=== PATIENT | female | born 1970 | race African-American/Black ===

== ENCOUNTER 2016-03-14 19:41 | Emergency (ER) | payer MEDICARE, MEDICAID ==
[2015-07-04 10:05] VITALS: BMI 49.4
[~2016-03-14 19:41] MED LIST: ATIVAN1 MG PO; COLACE100 MG PO; COMPAZINE5 MG PO; DEPAKOTE ER500 MG PO; DILAUDID4 MG PO; ELIQUIS5 MG PO; FERROUS SULFAT325 MG PO; KEPPRA1000 MG PO; LANTUS INSULIN10 ML SC; NEPHROCAPS SOFTG1 MG PO; NIFEDIPINE ER30 MG PO; NITROSTAT0.4 MG SL; PROTONIX40 MG PO; RENAGEL800 MG PO; ROBINUL 1 MG TAB1 MG PO; TOPROL XL25 MG PO; VITAMIN B COMPL1 TAB PO; XANAX0.25 MG PO
== END 2016-03-15 00:10 | disposition home or self-care (01) ==
LOC: D.ER 19:41
DX: T81.4XXA Infection following a procedure, initial encounter (principal); L73.2 Hidradenitis suppurativa; Z95.0 Presence of cardiac pacemaker; G47.30 Sleep apnea, unspecified

== ENCOUNTER 2016-04-15 22:12 | Emergency (ER) | payer MEDICARE, MEDICAID ==
[2015-07-04 10:05] VITALS: BMI 49.4
[2016-04-15 23:11] LABS: BASOPHILS 0.3 % (0.0-2.0); EOSINOPHILS 2.6 % (0-7); HEMATOCRIT 30.8 % (36.0-48.0); HEMOGLOBIN 9.3 g/dL (12-16); IMMATURE GRANULOCYTES 0.4 % (0-5); LYMPHOCYTES 17.4 % (15-50); MCH 27.9 pg (26.0-34.0); MCHC 30.2 g/dL (31.0-37.0); MCV 92.5 fL (80.0-100.0); MEAN PLATELET VOLUME 11.9 fL (7.4-10.4); MONOCYTES 9.1 % (2-11); NEUTROPHILS 70.2 % (40-80); PLATELET COUNT 239 10x3/uL (130-400); RBC 3.33 10x6/uL (4.00-5.40); RDW 16.8 % (11.5-14.5); WBC 10.6 10x3/uL (4.8-10.8)
[2016-04-15 23:39] LABS: APPEARANCE CLOUDY (CLEAR); BILIRUBIN NEGATIVE (NEGATIVE); COLOR YELLOW (YELLOW); GLUCOSE NEGATIVE (NEGATIVE); KETONE NEGATIVE (NEGATIVE); LEUKOCYTE ESTERASE 2+ (NEGATIVE); NITRITE NEGATIVE (NEGATIVE); PROTEIN 2+ mg/dL (NEGATIVE); SPECIFIC GRAVITY 1.015 (1.005-1.020); UROBILINOGEN NORMAL (NORMAL)
[2016-04-15 23:45] LABS: BACTERIA MANY /hpf (NONE SEEN); WHITE CELLS - URINE >50 /hpf (0-5)
[2016-04-15 23:46] LABS: HYALINE CAST OCC /lpf (NONE SEEN); WAXY CAST RARE /lpf (NONE SEEN)
== END 2016-04-16 00:28 | disposition home or self-care (01) ==
LOC: D.ER 22:12
PROVIDERS: Emergency Medicine
DX: J06.9 Acute upper respiratory infection, unspecified (principal); F41.9 Anxiety disorder, unspecified; I50.9 Heart failure, unspecified; G89.29 Other chronic pain; Z86.73 Personal history of transient ischemic attack (TIA), and cerebral infarction without residual deficits; Z95.0 Presence of cardiac pacemaker; G47.30 Sleep apnea, unspecified

== ENCOUNTER 2016-04-22 14:06 | Emergency (ER) | payer MEDICARE, MEDICAID ==
[2015-07-04 10:05] VITALS: BMI 49.4
== END 2016-04-22 15:00 | disposition home or self-care (01) ==
LOC: D.ER 14:06
DX: L89.213 Pressure ulcer of right hip, stage 3 (principal); F41.9 Anxiety disorder, unspecified; I50.9 Heart failure, unspecified; Z86.73 Personal history of transient ischemic attack (TIA), and cerebral infarction without residual deficits; Z95.0 Presence of cardiac pacemaker; G47.30 Sleep apnea, unspecified

== ENCOUNTER 2016-05-23 21:37 | Emergency (ER) | payer MEDICARE, MEDICAID ==
[2015-07-04 10:05] VITALS: BMI 49.4
== END 2016-05-23 23:52 | disposition left against medical advice (07) ==
LOC: D.ER 21:37
DX: M79.672 Pain in left foot (principal)

== ENCOUNTER 2016-05-29 06:12 | Emergency (ER) | payer MEDICARE, MEDICAID ==
[2015-07-04 10:05] VITALS: BMI 49.4
== END 2016-05-29 06:52 | disposition left against medical advice (07) ==
LOC: D.ER 06:12
DX: K92.0 Hematemesis (principal); I50.9 Heart failure, unspecified; Z86.73 Personal history of transient ischemic attack (TIA), and cerebral infarction without residual deficits; Z95.0 Presence of cardiac pacemaker; G47.30 Sleep apnea, unspecified

== ENCOUNTER 2016-06-15 00:01 | Emergency (ER) | payer MEDICARE, MEDICAID ==
[2015-07-04 10:05] VITALS: BMI 49.4
[2016-06-15 01:28] LABS: BASOPHILS 0.4 % (0.0-2.0); EOSINOPHILS 4.1 % (0-7); HEMATOCRIT 35.4 % (36.0-48.0); IMMATURE GRANULOCYTES 0.4 % (0-5); LYMPHOCYTES 25.1 % (15-50); MCH 27.9 pg (26.0-34.0); MCHC 31.1 g/dL (31.0-37.0); MCV 89.8 fL (80.0-100.0); MEAN PLATELET VOLUME 11.6 fL (7.4-10.4); MONOCYTES 8.8 % (2-11); NEUTROPHILS 61.2 % (40-80); PLATELET COUNT 205 10x3/uL (130-400); RBC 3.94 10x6/uL (4.00-5.40); RDW 15.4 % (11.5-14.5); WBC 7.8 10x3/uL (4.8-10.8)
[2016-06-15 01:34] LABS: ALBUMIN 3.3 g/dL (3.4-5.0); ALKALINE PHOSPHATASE 92 U/L (46-116); ALT (SGPT) 14 U/L (10-68); BILIRUBIN - TOTAL 0.38 mg/dL (0.2-1.3); CALC OSMOLALITY 297 mosm/kg (275-300); CALCIUM 8.8 mg/dL (8.5-10.1); CARBON DIOXIDE 20.7 mmol/L (21.0-32.0); CHLORIDE - SERUM 106 mmol/L (98-107); CREATININE - SERUM 9.8 mg/dL (0.6-1.3); POTASSIUM - SERUM 4.6 mmol/L (3.5-5.1); PROTEIN - SERUM 8.4 g/dL (6.4-8.2); SODIUM 143 mmol/L (136-145); UREA NITROGEN 47 mg/dL (7-18); eGFR NON AFRICAN AMERICAN 5 mL/min (90-120)
[2016-06-15 01:39] LABS: GLUCOSE 120 mg/dL (74-106)
[2016-06-15 01:41] LABS: CKMB 0.7 U/L (0.0-3.6); CREATINE KINASE 48 UL (21-215); PRO BNP 16232 pg/mL (0-125); TROPONIN-I 0.019 ng/mL (0.000-0.060)
== END 2016-06-15 03:15 | disposition home or self-care (01) ==
LOC: D.ER 00:01
PROVIDERS: Family Medicine
DX: N18.9 Chronic kidney disease, unspecified (principal); G43.919 Migraine, unspecified, intractable, without status migrainosus; I50.9 Heart failure, unspecified; Z86.73 Personal history of transient ischemic attack (TIA), and cerebral infarction without residual deficits; Z95.0 Presence of cardiac pacemaker; G47.30 Sleep apnea, unspecified

== ENCOUNTER 2016-06-16 18:58 | Emergency (ER) | payer MEDICARE ==
[2015-07-04 10:05] VITALS: BMI 49.4
[2016-06-16 19:36] LABS: BASOPHILS 0.4 % (0.0-2.0); HEMATOCRIT 36.9 % (36.0-48.0); HEMOGLOBIN 11.6 g/dL (12-16); IMMATURE GRANULOCYTES 0.3 % (0-5); LYMPHOCYTES 21.8 % (15-50); MCH 28.2 pg (26.0-34.0); MCHC 31.4 g/dL (31.0-37.0); MCV 89.8 fL (80.0-100.0); MONOCYTES 7.4 % (2-11); NEUTROPHILS 67.1 % (40-80); PLATELET COUNT 217 10x3/uL (130-400); RBC 4.11 10x6/uL (4.00-5.40); WBC 6.7 10x3/uL (4.8-10.8)
[2016-06-16 19:49] LABS: ALBUMIN 3.3 g/dL (3.4-5.0); ALKALINE PHOSPHATASE 101 U/L (46-116); ALT (SGPT) 14 U/L (10-68); BILIRUBIN - TOTAL 0.34 mg/dL (0.2-1.3); CALCIUM 8.9 mg/dL (8.5-10.1); CHLORIDE - SERUM 102 mmol/L (98-107); CREATININE - SERUM 7.4 mg/dL (0.6-1.3); GLUCOSE 83 mg/dL (74-106); POTASSIUM - SERUM 4.1 mmol/L (3.5-5.1); PROTEIN - SERUM 8.4 g/dL (6.4-8.2); SODIUM 141 mmol/L (136-145); eGFR NON AFRICAN AMERICAN 6 mL/min (90-120)
[2016-06-16 19:50] LABS: CALC OSMOLALITY 285 mosm/kg (275-300); CARBON DIOXIDE 26.7 mmol/L (21.0-32.0); UREA NITROGEN 28 mg/dL (7-18)
[2016-06-16 20:01] LABS: CHOL - HDL RATIO 2.5 ratio (2.3-4.1); CHOLESTEROL, TOTAL 145 mg/dL (0-200); CKMB 0.8 U/L (0.0-3.6); CREATINE KINASE 50 UL (21-215); HDL CHOLESTEROL 58 mg/dL (32-96); LDL CHOLESTEROL 59 mg/dL (0-100); TRIGLYCERIDE 140 mg/dL (30-200); TROPONIN-I 0.024 ng/mL (0.000-0.060)
== END 2016-06-16 23:23 | disposition home or self-care (01) ==
LOC: D.ER 18:58
PROVIDERS: Emergency Medicine
DX: R07.9 Chest pain, unspecified (principal); I50.9 Heart failure, unspecified; N18.9 Chronic kidney disease, unspecified; Z86.73 Personal history of transient ischemic attack (TIA), and cerebral infarction without residual deficits; Z95.0 Presence of cardiac pacemaker; G47.30 Sleep apnea, unspecified

== ENCOUNTER 2016-07-01 12:32 | Emergency (ER) | payer MEDICARE ==
[2015-07-04 10:05] VITALS: BMI 49.4
[2016-07-01 16:03] LABS: BASOPHILS 0.3 % (0-2); EOSINOPHILS 2.1 % (0-7); HEMATOCRIT 33.6 % (36.0-48.0); HEMOGLOBIN 10.3 g/dL (12-16); IMMATURE GRANULOCYTES 0.3 % (0-5); LYMPHOCYTES 15.1 % (15-50); MCH 27.8 pg (26.0-34.0); MCHC 30.7 g/dL (31.0-37.0); MCV 90.6 fL (80.0-100.0); MEAN PLATELET VOLUME 12.1 fL (7.4-10.4); MONOCYTES 9.3 % (2-11); NEUTROPHILS 72.9 % (40-80); PLATELET COUNT 210 10x3/uL (130-400); RBC 3.71 10x6/uL (4.00-5.40); RDW 15.4 % (11.5-14.5); WBC 9.3 10x3/uL (4.8-10.8)
[2016-07-01 16:15] LABS: APPEARANCE HAZY (CLEAR); BILIRUBIN NEGATIVE (NEGATIVE); COLOR YELLOW (YELLOW); GLUCOSE NEGATIVE (NEGATIVE); KETONE NEGATIVE (NEGATIVE); LEUKOCYTE ESTERASE 1+ (NEGATIVE); NITRITE NEGATIVE (NEGATIVE); PROTEIN 3+ mg/dL (NEGATIVE); SPECIFIC GRAVITY 1.005 (1.005-1.020); UROBILINOGEN NORMAL (NORMAL)
[2016-07-01 16:16] LABS: BACTERIA MODERATE /hpf (NONE SEEN); EPITHELIAL CELLS 0-5 /hpf (0-5); RED CELLS - URINE 0-5 /hpf (0-5)
[2016-07-01 16:27] LABS: ALBUMIN 3.3 g/dL (3.4-5.0); BILIRUBIN - TOTAL 0.55 mg/dL (0.2-1.3); CALCIUM 9.9 mg/dL (8.5-10.1); CARBON DIOXIDE 24.9 mmol/L (21.0-32.0); CREATININE - SERUM 9.7 mg/dL (0.6-1.3); POTASSIUM - SERUM 5.9 mmol/L (3.5-5.1); PROTEIN - SERUM 8.4 g/dL (6.4-8.2)
== END 2016-07-01 18:45 | disposition home or self-care (01) ==
LOC: D.ER 12:32
PROVIDERS: Physician Assistant Medical
DX: J18.9 Pneumonia, unspecified organism (principal); E87.70 Fluid overload, unspecified; I50.9 Heart failure, unspecified; Z86.73 Personal history of transient ischemic attack (TIA), and cerebral infarction without residual deficits; N18.9 Chronic kidney disease, unspecified; Z95.0 Presence of cardiac pacemaker; G47.30 Sleep apnea, unspecified

== ENCOUNTER 2016-07-02 18:41 | Emergency (ER) | payer MEDICARE ==
[2015-07-04 10:05] VITALS: BMI 49.4
[2016-07-02 20:26] LABS: BASOPHILS 0.1 % (0-2); EOSINOPHILS 0.5 % (0-7); HEMOGLOBIN 9.9 g/dL (12-16); IMMATURE GRANULOCYTES 0.2 % (0-5); LYMPHOCYTES 3.5 % (15-50); MCH 27.9 pg (26.0-34.0); MCHC 30.9 g/dL (31.0-37.0); MCV 90.1 fL (80.0-100.0); MEAN PLATELET VOLUME 11.3 fL (7.4-10.4); MONOCYTES 7.9 % (2-11); NEUTROPHILS 87.8 % (40-80); PLATELET COUNT 173 10x3/uL (130-400); RBC 3.55 10x6/uL (4.00-5.40); RDW 15.4 % (11.5-14.5); WBC 9.5 10x3/uL (4.8-10.8)
[2016-07-02 20:41] LABS: HEMOGLOBIN A1C 5.5 % (4.8-6.0)
[2016-07-02 20:44] LABS: BILIRUBIN - TOTAL 0.41 mg/dL (0.2-1.3); CALCIUM 9.3 mg/dL (8.5-10.1); CARBON DIOXIDE 24.6 mmol/L (21.0-32.0); CREATININE - SERUM 8.2 mg/dL (0.6-1.3); PROTEIN - SERUM 8.4 g/dL (6.4-8.2)
[2016-07-02 20:50] LABS: ANION GAP 16.4 mmol/L (8-16)
[2016-07-02 20:54] LABS: TROPONIN-I 0.033 ng/mL (0.000-0.060)
== END 2016-07-02 22:25 | disposition home or self-care (01) ==
LOC: D.ER 18:41
PROVIDERS: Family Medicine
DX: J18.9 Pneumonia, unspecified organism (principal); N18.9 Chronic kidney disease, unspecified; I50.9 Heart failure, unspecified; Z86.73 Personal history of transient ischemic attack (TIA), and cerebral infarction without residual deficits; Z95.0 Presence of cardiac pacemaker; E11.9 Type 2 diabetes mellitus without complications; Z79.4 Long term (current) use of insulin

== ENCOUNTER 2016-07-06 01:04 | Emergency (ER) | payer MEDICARE ==
[2015-07-04 10:05] VITALS: BMI 49.4
== END 2016-07-06 02:55 | disposition left against medical advice (07) ==
LOC: D.ER 01:04
DX: R11.10 Vomiting, unspecified (principal); R10.9 Unspecified abdominal pain; I50.9 Heart failure, unspecified; N18.9 Chronic kidney disease, unspecified; Z99.2 Dependence on renal dialysis; Z86.73 Personal history of transient ischemic attack (TIA), and cerebral infarction without residual deficits; Z95.0 Presence of cardiac pacemaker; G47.30 Sleep apnea, unspecified

== ENCOUNTER 2016-08-02 05:27 | Emergency (ER) | payer MEDICARE ==
[2015-07-04 10:05] VITALS: BMI 49.4
== END 2016-08-02 06:45 | disposition home or self-care (01) ==
LOC: D.ER 05:27
DX: F41.0 Panic disorder [episodic paroxysmal anxiety] (principal); N18.6 End stage renal disease; I50.9 Heart failure, unspecified; Z86.73 Personal history of transient ischemic attack (TIA), and cerebral infarction without residual deficits; Z95.0 Presence of cardiac pacemaker; G47.30 Sleep apnea, unspecified

== ENCOUNTER 2016-08-22 12:55 | Emergency (ER) | payer MEDICARE ==
[2015-07-04 10:05] VITALS: BMI 49.4
[2016-08-22 15:03] LABS: BASOPHILS 0.4 % (0-2); EOSINOPHILS 4.6 % (0-7); HEMATOCRIT 28.4 % (36.0-48.0); HEMOGLOBIN 8.9 g/dL (12-16); IMMATURE GRANULOCYTES 0.2 % (0-5); LYMPHOCYTES 17.8 % (15-50); MCH 28.6 pg (26.0-34.0); MCHC 31.3 g/dL (31.0-37.0); MCV 91.3 fL (80.0-100.0); MEAN PLATELET VOLUME 12.1 fL (7.4-10.4); MONOCYTES 5.3 % (2-11); NEUTROPHILS 71.7 % (40-80); PLATELET COUNT 221 10x3/uL (130-400); RBC 3.11 10x6/uL (4.00-5.40); RDW 15.3 % (11.5-14.5); WBC 9.2 10x3/uL (4.8-10.8)
[2016-08-22 15:11] LABS: ALBUMIN 3.3 g/dL (3.4-5.0); ANION GAP 18.7 mmol/L (8-16); BILIRUBIN - TOTAL 0.38 mg/dL (0.2-1.3); CALCIUM 7.9 mg/dL (8.5-10.1); CARBON DIOXIDE 22.4 mmol/L (21.0-32.0); CREATININE - SERUM 12.4 mg/dL (0.6-1.3); POTASSIUM - SERUM 5.1 mmol/L (3.5-5.1)
== END 2016-08-22 16:21 | disposition home or self-care (01) ==
LOC: D.ER 12:55
PROVIDERS: Physician Assistant
DX: I12.9 Hypertensive chronic kidney disease with stage 1 through stage 4 chronic kidney disease, or unspecified chronic kidney disease (principal); E11.9 Type 2 diabetes mellitus without complications; Z79.4 Long term (current) use of insulin; G40.909 Epilepsy, unspecified, not intractable, without status epilepticus; D64.9 Anemia, unspecified

== ENCOUNTER 2016-08-23 09:40 | Emergency (ER) | payer MEDICARE ==
[2015-07-04 10:05] VITALS: BMI 49.4
[2016-08-23 13:35] LABS: BASOPHILS 0.4 % (0-2); EOSINOPHILS 5.4 % (0-7); HEMOGLOBIN 9.2 g/dL (12-16); IMMATURE GRANULOCYTES 0.3 % (0-5); LYMPHOCYTES 19.3 % (15-50); MCH 28.3 pg (26.0-34.0); MCHC 31.7 g/dL (31.0-37.0); MEAN PLATELET VOLUME 11.8 fL (7.4-10.4); MONOCYTES 7.4 % (2-11); NEUTROPHILS 67.2 % (40-80); PLATELET COUNT 191 10x3/uL (130-400); RBC 3.25 10x6/uL (4.00-5.40); RDW 15.1 % (11.5-14.5)
--- NOTE | 2016-08-23 13:54 | NUR ---
HEMODIALYSIS TREATMENT STOPPED AT 2HR, PATIENT HAD COMPLAINED OF CRAMPING, I EXPLAINED THAT BECAUSE SHE MISSED 2 TREATMENTS, WE HAVE TO BE AGGRESSIVE ON HER UF TO MAKE UP FOR THAT. PATIENT THEN SAT UP OUT OF CHAIR AND COMPLAINED OF DIZZINESS, PATIENT WAS UN COOPERATIVE WHEN ASKED TO PUT HER LEGS BACK UP INTO CHAIR. PATIENT THEN STARTED HAVING "SEIZURE LIKE" ACTIVITY WITH EYES ROLLED BACK AND SHAKING OF BODY. THIS LASTED APPROXIMATELY 10 MINUTES, RAPID RESPONSE CALLED, PATIENT TAKEN OFF OF TREATMENT. DR. LIN NOTIFIED, INSTRUCTED PATIENT RETURN TO ER AND HAVE ER PHYSICIAN LOOK AT PATIENT, THAT DIALYSIS WAS COMPLETE. ER NURSE IN FOR REPORT AND TRANSPORTED PATIENT BACK TO ER VIA . VITALS WNL AT TREATMENT END, AFTER DRAWING LAB FROM HEMOSPLIT IT WAS FLUSHED AND HEPARINIZED. NET FLUID REMOVAL OF 3500 ML.
[2016-08-23 13:56] LABS: MCV 89.2 fL (80.0-100.0)
[2016-08-23 14:00] LABS: ALBUMIN 3.5 g/dL (3.4-5.0); ANION GAP 18.1 mmol/L (8-16); BILIRUBIN - TOTAL 0.4 mg/dL (0.2-1.3); CALCIUM 8.4 mg/dL (8.5-10.1); PROTEIN - SERUM 9.1 g/dL (6.4-8.2)
[2016-08-23 14:05] LABS: CREATININE - SERUM 9.2 mg/dL (0.6-1.3); POTASSIUM - SERUM 4.1 mmol/L (3.5-5.1)
== END 2016-08-23 15:14 | disposition home or self-care (01) ==
LOC: D.ER 09:40 → D.M3 11:27 → D.ER 15:14
PROVIDERS: Physician Assistant
DX: I12.9 Hypertensive chronic kidney disease with stage 1 through stage 4 chronic kidney disease, or unspecified chronic kidney disease (principal); N18.9 Chronic kidney disease, unspecified; E11.9 Type 2 diabetes mellitus without complications; Z79.4 Long term (current) use of insulin; Z91.14 Patient's other noncompliance with medication regimen; G40.909 Epilepsy, unspecified, not intractable, without status epilepticus; Z86.73 Personal history of transient ischemic attack (TIA), and cerebral infarction without residual deficits; G47.30 Sleep apnea, unspecified; Z95.0 Presence of cardiac pacemaker; Z99.2 Dependence on renal dialysis

== ENCOUNTER 2016-09-14 11:36 | Emergency (ER) | payer MEDICARE ==
[2015-07-04 10:05] VITALS: BMI 49.4
[2016-09-14 13:30] LABS: BASOPHILS 0.1 % (0-2); EOSINOPHILS 3.7 % (0-7); HEMOGLOBIN 8.9 g/dL (12-16); IMMATURE GRANULOCYTES 0.4 % (0-5); LYMPHOCYTES 20.6 % (15-50); MCHC 30.7 g/dL (31.0-37.0); MCV 91.2 fL (80.0-100.0); MEAN PLATELET VOLUME 12.1 fL (7.4-10.4); MONOCYTES 8.1 % (2-11); NEUTROPHILS 67.1 % (40-80); PLATELET COUNT 175 10x3/uL (130-400); RBC 3.18 10x6/uL (4.00-5.40); RDW 17.2 % (11.5-14.5)
[2016-09-14 13:42] LABS: ALBUMIN 3.1 g/dL (3.4-5.0); ANION GAP 18.4 mmol/L (8-16); BILIRUBIN - TOTAL 0.4 mg/dL (0.2-1.3); CALCIUM 9.3 mg/dL (8.5-10.1); CARBON DIOXIDE 21.6 mmol/L (21.0-32.0); CREATININE - SERUM 9.3 mg/dL (0.6-1.3); PROTEIN - SERUM 8.4 g/dL (6.4-8.2)
== END 2016-09-14 13:15 | disposition home or self-care (01) ==
LOC: D.ER 11:36
PROVIDERS: Nurse Practitioner Family
DX: I12.9 Hypertensive chronic kidney disease with stage 1 through stage 4 chronic kidney disease, or unspecified chronic kidney disease (principal); N18.9 Chronic kidney disease, unspecified; E11.9 Type 2 diabetes mellitus without complications; Z79.4 Long term (current) use of insulin; Z86.73 Personal history of transient ischemic attack (TIA), and cerebral infarction without residual deficits; Z95.0 Presence of cardiac pacemaker; G40.909 Epilepsy, unspecified, not intractable, without status epilepticus; G47.30 Sleep apnea, unspecified

== ENCOUNTER 2016-09-23 13:14 | Emergency (ER) | payer MEDICARE ==
[2015-07-04 10:05] VITALS: BMI 49.4
== END 2016-09-23 15:39 | disposition home or self-care (01) ==
LOC: D.ER 13:14
DX: J02.9 Acute pharyngitis, unspecified (principal); J06.9 Acute upper respiratory infection, unspecified; Z86.73 Personal history of transient ischemic attack (TIA), and cerebral infarction without residual deficits; Z99.2 Dependence on renal dialysis; I12.9 Hypertensive chronic kidney disease with stage 1 through stage 4 chronic kidney disease, or unspecified chronic kidney disease; N18.9 Chronic kidney disease, unspecified; E11.9 Type 2 diabetes mellitus without complications; Z79.4 Long term (current) use of insulin; Z95.0 Presence of cardiac pacemaker; G40.909 Epilepsy, unspecified, not intractable, without status epilepticus; G47.30 Sleep apnea, unspecified; R51 Headache; R09.82 Postnasal drip

== ENCOUNTER 2016-10-03 15:09 | Emergency (ER) | payer MEDICARE ==
[2015-07-04 10:05] VITALS: BMI 49.4
[2016-10-03 16:31] LABS: BASOPHILS 0.4 % (0-2); EOSINOPHILS 3.8 % (0-7); HEMATOCRIT 25.5 % (36.0-48.0); IMMATURE GRANULOCYTES 0.4 % (0-5); LYMPHOCYTES 22.3 % (15-50); MCHC 31.4 g/dL (31.0-37.0); MCV 92.4 fL (80.0-100.0); MEAN PLATELET VOLUME 11.9 fL (7.4-10.4); NEUTROPHILS 60.1 % (40-80); RBC 2.76 10x6/uL (4.00-5.40); RDW 15.7 % (11.5-14.5); WBC 7.5 10x3/uL (4.8-10.8)
[2016-10-03 16:32] LABS: PLATELET COUNT 256 10x3/uL (130-400)
[2016-10-03 16:41] LABS: ALBUMIN 3.3 g/dL (3.4-5.0); ANION GAP 18.3 mmol/L (8-16); BILIRUBIN - TOTAL 0.41 mg/dL (0.2-1.3); CALCIUM 8.6 mg/dL (8.5-10.1); CARBON DIOXIDE 23.3 mmol/L (21.0-32.0); CREATININE - SERUM 11.1 mg/dL (0.6-1.3); POTASSIUM - SERUM 5.6 mmol/L (3.5-5.1); PROTEIN - SERUM 8.1 g/dL (6.4-8.2)
== END 2016-10-03 19:15 | disposition home or self-care (01) ==
LOC: D.ER 15:09
PROVIDERS: Physician Assistant Medical
DX: J06.9 Acute upper respiratory infection, unspecified (principal); I12.0 Hypertensive chronic kidney disease with stage 5 chronic kidney disease or end stage renal disease; N18.6 End stage renal disease; E87.5 Hyperkalemia; Z86.73 Personal history of transient ischemic attack (TIA), and cerebral infarction without residual deficits; Z99.2 Dependence on renal dialysis; E11.9 Type 2 diabetes mellitus without complications; Z79.4 Long term (current) use of insulin; Z95.0 Presence of cardiac pacemaker; G40.909 Epilepsy, unspecified, not intractable, without status epilepticus; R09.89 Other specified symptoms and signs involving the circulatory and respiratory systems; R06.2 Wheezing; R05 Cough

== ENCOUNTER 2016-10-17 20:50 | Emergency (ER) | payer MEDICARE ==
[2015-07-04 10:05] VITALS: BMI 49.4
== END 2016-10-17 23:17 | disposition home or self-care (01) ==
LOC: D.ER 20:50
DX: M79.604 Pain in right leg (principal); Z86.718 Personal history of other venous thrombosis and embolism; Z86.73 Personal history of transient ischemic attack (TIA), and cerebral infarction without residual deficits; E11.9 Type 2 diabetes mellitus without complications; Z79.4 Long term (current) use of insulin; I10 Essential (primary) hypertension; G40.909 Epilepsy, unspecified, not intractable, without status epilepticus; Z95.0 Presence of cardiac pacemaker; R11.2 Nausea with vomiting, unspecified

== ENCOUNTER 2017-02-13 17:22 | Emergency (ER) | payer MEDICARE ==
[2015-07-04 10:05] VITALS: BMI 49.4
== END 2017-02-14 00:01 | disposition home or self-care (01) ==
LOC: D.ER 17:22
DX: R10.2 Pelvic and perineal pain (principal); M79.605 Pain in left leg; M79.604 Pain in right leg; Z99.2 Dependence on renal dialysis

== ENCOUNTER 2017-04-22 14:29 | Emergency (ER) | payer MEDICARE ==
[2015-07-04 10:05] VITALS: BMI 49.4
== END 2017-04-22 16:09 | disposition home or self-care (01) ==
LOC: D.ER 14:29
DX: B37.89 Other sites of candidiasis (principal); Z86.73 Personal history of transient ischemic attack (TIA), and cerebral infarction without residual deficits; Z99.2 Dependence on renal dialysis; Z95.0 Presence of cardiac pacemaker

== ENCOUNTER 2017-04-23 17:33 | Emergency (ER) | payer MEDICARE ==
[2015-07-04 10:05] VITALS: BMI 49.4
[2017-04-23 22:13] LABS: BASOPHILS 0.2 % (0-2); EOSINOPHILS 3.4 % (0-7); HEMATOCRIT 25.7 % (36.0-48.0); HEMOGLOBIN 7.8 g/dL (12-16); IMMATURE GRANULOCYTES 0.3 % (0-5); LYMPHOCYTES 14.1 % (15-50); MCH 28.4 pg (26.0-34.0); MCHC 30.4 g/dL (31.0-37.0); MCV 93.5 fL (80.0-100.0); MEAN PLATELET VOLUME 11.2 fL (7.4-10.4); MONOCYTES 11.4 % (2-11); NEUTROPHILS 70.6 % (40-80); RBC 2.75 10x6/uL (4.00-5.40); RDW 18.5 % (11.5-14.5); WBC 9.9 10x3/uL (4.8-10.8)
[2017-04-23 22:26] LABS: ANION GAP 17.2 mmol/L (8-16); BILIRUBIN - TOTAL 0.33 mg/dL (0.2-1.3); CALCIUM 8.8 mg/dL (8.5-10.1); CARBON DIOXIDE 25.9 mmol/L (21.0-32.0); CREATININE - SERUM 10.9 mg/dL (0.6-1.3); PLATELET COUNT 117 10x3/uL (130-400); POTASSIUM - SERUM 4.1 mmol/L (3.5-5.1); PROTEIN - SERUM 8.1 g/dL (6.4-8.2)
== END 2017-04-23 23:11 | disposition home or self-care (01) ==
LOC: D.ER 17:33
PROVIDERS: Physician Assistant
DX: M79.3 Panniculitis, unspecified (principal); I12.0 Hypertensive chronic kidney disease with stage 5 chronic kidney disease or end stage renal disease; N18.6 End stage renal disease; E11.9 Type 2 diabetes mellitus without complications; Z79.4 Long term (current) use of insulin; D64.9 Anemia, unspecified; Z95.0 Presence of cardiac pacemaker